=== PATIENT | female | born 1980 | race Caucasian/White ===

== ENCOUNTER 2024-08-01 07:49 | Day surgery (SDC) | payer BC, OTHER ==
[~2024-08-01 07:49] MED LIST: Sodium Chloride 0.9% 10 ML Syringe FLUSH PRN
[2024-08-01] MEDS ORDERED: Lidocaine 1% PF 2 ML SDV IV ONE (07:50)
[2024-08-01] MEDS ORDERED: Propofol 200 MG/20 ML SDV IV ONE (07:50)
[2024-08-01] MEDS: Lactated Ringers 1,000 ML IV SCH (08:50)
[2024-08-01] MEDS: Simethicone Drops 40 MG/0.6 ML 30 ML Bottle ONE (09:04)
[2024-08-01 10:45] VITALS: BP 126/81; PULSE 66
== END 2024-08-01 10:20 | disposition home or self-care (01) ==
LOC: FB.SDS 07:49
PROVIDERS: ATTEND Surgery
DX: Z12.11 Encounter for screening for malignant neoplasm of colon (principal); K57.30 Diverticulosis of large intestine without perforation or abscess without bleeding; I10 Essential (primary) hypertension; E03.9 Hypothyroidism, unspecified; Z88.1 Allergy status to other antibiotic agents; Z79.890 Hormone replacement therapy; Z79.899 Other long term (current) drug therapy
CPT/HCPCS: 00812; 45378; A9270; J2704; J7120; J2003